=== PATIENT | male | born 1930 ===

== ENCOUNTER 2018-07-12 11:20 | Emergency (ER) | payer OTHER ==
[~2018-07-12] VITALS: Ht 172.7 cm; Wt 90.7 kg
[~2018-07-12 11:20] MED LIST: CIPRO500 MG PO; DICLOFENAC SODI75 MG PO; GALANTAMINE HBR24 MG; METFORMIN HCL500 MG; NAMENDA XR28 MG
[2018-07-12] MEDS ORDERED: URIN D.S. TABL1 EACH PO (15:48)
[2018-07-12] MEDS ORDERED: BACTRIM DS TAB1 EACH PO (15:48)
== END 2018-07-12 16:03 | disposition home or self-care (01) ==
LOC: ER 11:20
DX: N39.0 Urinary tract infection, site not specified (principal)